=== PATIENT | male | born 1940 | race Caucasian/White ===

== ENCOUNTER 2021-08-29 19:30 | Inpatient (IN) | payer OTHER, SELFPAY ==
[~2021-08-29] VITALS: Ht 177.8 cm; Wt 80.9 kg
[~2021-08-29 19:30] MED LIST: APIX2.5T PO; APRE30TA2 PO; CEPH250C PO; CLOT45CR33 VG; FLUC200T51 PO; METO25TA3 PO; SIMV40TA2 PO; TAMS-11 PO
[2021-08-29 20:57] VITALS: BP_SYST 158
[2021-08-29] MEDS ORDERED: MORPHINE 4 MG INJ. 4 MG/ML VIAL IVP ONE ×2 (21:30→23:00)
[2021-08-29 22:41] LABS: BASOPHILS % (AUTO) 0.3 % (0.0-2.0); EOSINOPHILS % (AUTO) 0.3 % (0.0-4.0); HEMATOCRIT 46.1 % (36-54); HEMOGLOBIN 15.2 g/dL (14.0-18.0); LYMPHOCYTES # (AUTO) 0.4 K/uL (1.0-5.5); LYMPHOCYTES % (AUTO) 3.1 % (20.5-51.5); MEAN CORPUSCULAR HEMOGLOBIN 31 pg (27-31); MEAN CORPUSCULAR HGB CONC 33 % (32-36); MEAN CORPUSCULAR VOLUME 95 fL (79.0-98.0); MONOCYTES # (AUTO) 1.7 K/uL (0.0-1.0); MONOCYTES % (AUTO) 14.5 % (1.7-9.3); NEUTROPHILS # (AUTO) 9.4 K/uL (1.8-7.7); NEUTROPHILS % (AUTO) 81.8 % (40.0-70.0); PLATELET COUNT (AUTO) 147 K/uL (130-430); RED BLOOD CELL COUNT(AUTO) 4.88 MIL/uL (4.2-6.2); RED CELL DISTRIBUTION WIDTH 15.2 % (9.0-15.0); WHITE BLOOD COUNT (AUTO) 11.5 K/uL (4.8-10.8)
[2021-08-29 22:53] LABS: ANION GAP 10 (5-15); CALCIUM 9.3 mg/dL (8.4-11.0); CHLORIDE 101 mmol/L (98-107); CREATININE 0.84 mg/dL (0.55-1.30); GLUCOSE 124 mg/dL (70-99); POTASSIUM 4.3 mmol/L (3.5-5.1); SODIUM SERUM 136 mmol/L (136-145); UREA NITROGEN, BLOOD 29 mg/dL (8-21)
[2021-08-29 23:01] LABS: ALANINE AMINOTRANSFERASE 14 U/L (12-78); ALBUMIN 2.9 g/dL (3.4-4.8); ASPARTATE AMINOTRANSFERASE 23 U/L (10-37); LIPASE 42 U/L (73-393); TOTAL BILIRUBIN 0.8 mg/dL (0.0-1.0)
[2021-08-30 00:39] LABS: BILIRUBIN,URINE NEGATIVE (NEGATIVE); BLOOD, URINE NEGATIVE (NEGATIVE); CLARITY/URINE CLEAR (CLEAR); COLOR,URINE YELLOW (YELLOW); GLUCOSE,URINE NEGATIVE (NEGATIVE); KETONES,URINE 1+ (NEGATIVE); LEUKOCYTE ESTERASE ,URINE NEGATIVE (NEGATIVE); NITRITE, URINE NEGATIVE (NEGATIVE); PROTEIN URINE NEGATIVE (NEGATIVE); UROBILINOGEN,URINE 0.2 (0.2-1.0)
[2021-08-30 03:22] VITALS: BP_SYST 160
[2021-08-30] MEDS ORDERED: HYDROcodone/ACETAMIN 5-325 MG TAB (NORCO/ VICODIN) PO PRN (03:30)
[2021-08-30] MEDS: MORPHINE 2 MG/ML INJ. SYRINGE IVP PRN (03:49)
[2021-08-30] MEDS: D5/0.45 NS 1,000 ML IV SCH ×2 (03:54→04:25)
[2021-08-30 04:00] VITALS: BP_SYST 160
[2021-08-30] MEDS: HYDROcodone/ACETAMIN 10-325 MG TAB PO PRN ×4 (04:26→12:28)
[2021-08-30 07:32] VITALS: BP_SYST 167
[2021-08-30] MEDS ORDERED: FLUCONAZOLE 200 MG TABLET (DIFLUCAN) PO ONE (10:45)
[2021-08-30] MEDS ORDERED: CLOTRIMAZOLE 1% TOPICAL CREAM 15 GM TP ONE (10:45)
[2021-08-30] MEDS ORDERED: ONDANSETRON HCL 4 MG/2 ML VIAL IVP PRN (12:30)
[2021-08-30] MEDS ORDERED: TAMSULOSIN HCL 0.4 MG CAP PO ONE (12:45)
[2021-08-30] MEDS ORDERED: APIXABAN 2.5 MG TABLET PO ONE (12:45)
[2021-08-30] MEDS ORDERED: METOPROLOL SUCCINATE 25 MG TAB.SR.24H (TOPROL XL) PO ONE (12:45)
[2021-08-30] MEDS ORDERED: cephALEXin 250 MG CAPSULE PO SCH (13:00)
[2021-08-30] MEDS: NORMAL SALINE 5 ML DISP.SYRIN IVF SCH ×4 (14:00→21:06)
[2021-08-30] MEDS: cephALEXin 500 MG CAPSULE PO SCH ×3 (15:45→21:06)
[2021-08-30 20:00] VITALS: BP_SYST 135
[2021-08-30] MEDS: CLOTRIMAZOLE 1% TOPICAL CREAM 15 GM TP SCH (21:06)
[2021-08-30] MEDS: CLOTRIMAZOLE 2% 3 DAY VAGINAL 21 GM CREAM.APPL VG SCH (21:06)
[2021-08-30] MEDS: APIXABAN 2.5 MG TABLET PO SCH (21:06)
[2021-08-30] MEDS: SIMVASTATIN 40 MG TABLET PO SCH (21:06)
[2021-08-31] MEDS: MORPHINE 2 MG/ML INJ. SYRINGE IVP PRN ×2 (00:23→23:36)
[2021-08-31 01:10] VITALS: BP_SYST 153
[2021-08-31] MEDS: NORMAL SALINE 5 ML DISP.SYRIN IVF SCH ×3 (06:54→21:13)
[2021-08-31 07:48] LABS: BASOPHILS % (AUTO) 0.4 % (0.0-2.0); EOSINOPHILS # (AUTO) 0.1 K/uL (0.0-0.4); EOSINOPHILS % (AUTO) 0.5 % (0.0-4.0); HEMATOCRIT 42.7 % (36-54); HEMOGLOBIN 14.2 g/dL (14.0-18.0); LYMPHOCYTES # (AUTO) 0.6 K/uL (1.0-5.5); MEAN CORPUSCULAR HEMOGLOBIN 31 pg (27-31); MEAN CORPUSCULAR HGB CONC 33 % (32-36); MEAN CORPUSCULAR VOLUME 93 fL (79.0-98.0); MONOCYTES # (AUTO) 1.5 K/uL (0.0-1.0); MONOCYTES % (AUTO) 12.7 % (1.7-9.3); NEUTROPHILS # (AUTO) 9.5 K/uL (1.8-7.7); NEUTROPHILS % (AUTO) 81.4 % (40.0-70.0); PLATELET COUNT (AUTO) 168 K/uL (130-430); RED BLOOD CELL COUNT(AUTO) 4.58 MIL/uL (4.2-6.2); RED CELL DISTRIBUTION WIDTH 15.4 % (9.0-15.0); WHITE BLOOD COUNT (AUTO) 11.7 K/uL (4.8-10.8)
[2021-08-31 08:47] LABS: ALANINE AMINOTRANSFERASE 13 U/L (12-78); ALBUMIN 2.3 g/dL (3.4-4.8); ANION GAP 9 (5-15); ASPARTATE AMINOTRANSFERASE 18 U/L (10-37); CALCIUM 7.8 mg/dL (8.4-11.0); CHLORIDE 103 mmol/L (98-107); CREATININE 0.61 mg/dL (0.55-1.30); GLUCOSE 99 mg/dL (70-99); POTASSIUM 3.8 mmol/L (3.5-5.1); SODIUM SERUM 137 mmol/L (136-145); TOTAL BILIRUBIN 0.6 mg/dL (0.0-1.0); UREA NITROGEN, BLOOD 21 mg/dL (8-21)
[2021-08-31] MEDS: HYDROcodone/ACETAMIN 10-325 MG TAB PO PRN ×3 (08:49→17:18)
[2021-08-31] MEDS: cephALEXin 500 MG CAPSULE PO SCH (08:50)
[2021-08-31] MEDS: APIXABAN 2.5 MG TABLET PO SCH ×2 (08:50→21:12)
[2021-08-31] MEDS: TAMSULOSIN HCL 0.4 MG CAP PO SCH (08:51)
[2021-08-31] MEDS: METOPROLOL SUCCINATE 25 MG TAB.SR.24H (TOPROL XL) PO SCH (08:51)
[2021-08-31] MEDS: CLOTRIMAZOLE 1% TOPICAL CREAM 15 GM TP SCH ×2 (08:53→21:12)
[2021-08-31] MEDS ORDERED: NON-FORMULARY MEDICATION (Apremilast (Otezla) 30 MG) PO SCH (09:00)
[2021-08-31] MEDS ORDERED: FLUCONAZOLE 200 MG TABLET (DIFLUCAN) PO SCH ×2 (09:00)
[2021-08-31] MEDS: CLOTRIMAZOLE 2% 3 DAY VAGINAL 21 GM CREAM.APPL VG SCH ×2 (09:00→21:13)
[2021-08-31 09:24] LABS: ERYTHROCYTE SEDIMENTATION RATE 43 MM/HR (0-15)
[2021-08-31 10:00] LABS: C-REACTIVE PROTEIN QUANT 14.8 mg/dL (0-0.5)
[2021-08-31 13:06] VITALS: BP_SYST 143
[2021-08-31] MEDS: MICAFUNGIN SODIUM 100 MG in NS 100 ML IV SCH (13:15)
[2021-08-31 18:04] VITALS: BP_SYST 151
[2021-08-31 20:00] VITALS: BP_SYST 145
[2021-08-31] MEDS: CEFEPIME 1 GM in D5W 50 ML IV SCH (21:12)
[2021-08-31] MEDS: SIMVASTATIN 40 MG TABLET PO SCH (21:12)
[2021-09-01 01:13] VITALS: BP_SYST 158
[2021-09-01] MEDS: NORMAL SALINE 5 ML DISP.SYRIN IVF SCH ×3 (06:04→21:42)
[2021-09-01 08:00] VITALS: BP_SYST 121
[2021-09-01] MEDS: APIXABAN 2.5 MG TABLET PO SCH ×2 (09:29→21:33)
[2021-09-01] MEDS: TAMSULOSIN HCL 0.4 MG CAP PO SCH (09:30)
[2021-09-01] MEDS: CLOTRIMAZOLE 2% 3 DAY VAGINAL 21 GM CREAM.APPL VG SCH ×2 (09:31→21:00)
[2021-09-01] MEDS: METOPROLOL SUCCINATE 25 MG TAB.SR.24H (TOPROL XL) PO SCH (09:31)
[2021-09-01] MEDS: CLOTRIMAZOLE 1% TOPICAL CREAM 15 GM TP SCH ×2 (09:31→21:41)
[2021-09-01] MEDS: CEFEPIME 1 GM in D5W 50 ML IV SCH ×2 (09:32→21:40)
[2021-09-01 12:26] VITALS: BP_SYST 138
[2021-09-01] MEDS: MICAFUNGIN SODIUM 100 MG in NS 100 ML IV SCH (12:44)
[2021-09-01 16:40] VITALS: BP_SYST 132
[2021-09-01] MEDS: HYDROcodone/ACETAMIN 10-325 MG TAB PO PRN (16:41)
[2021-09-01] MEDS: SIMVASTATIN 40 MG TABLET PO SCH (21:35)
[2021-09-01 23:40] VITALS: BP_SYST 157
[2021-09-02 04:29] VITALS: BP_SYST 157
[2021-09-02] MEDS: HYDROcodone/ACETAMIN 10-325 MG TAB PO PRN ×2 (05:13→11:48)
[2021-09-02] MEDS: NORMAL SALINE 5 ML DISP.SYRIN IVF SCH ×3 (05:14→22:09)
[2021-09-02 08:26] VITALS: BP_SYST 148
[2021-09-02] MEDS: CLOTRIMAZOLE 1% TOPICAL CREAM 15 GM TP SCH ×2 (10:00→22:10)
[2021-09-02] MEDS: CEFEPIME 1 GM in D5W 50 ML IV SCH ×2 (10:11→22:07)
[2021-09-02] MEDS: TAMSULOSIN HCL 0.4 MG CAP PO SCH (10:12)
[2021-09-02] MEDS: METOPROLOL SUCCINATE 25 MG TAB.SR.24H (TOPROL XL) PO SCH (10:13)
[2021-09-02] MEDS: APIXABAN 2.5 MG TABLET PO SCH ×2 (10:15→20:35)
[2021-09-02] MEDS: CLOTRIMAZOLE 2% 3 DAY VAGINAL 21 GM CREAM.APPL VG SCH ×2 (10:30→22:10)
[2021-09-02 12:00] VITALS: BP_SYST 138; BP_SYST 148
[2021-09-02] MEDS: MICAFUNGIN SODIUM 100 MG in NS 100 ML IV SCH (12:30)
[2021-09-02 16:30] VITALS: BP_SYST 132
[2021-09-02 20:00] VITALS: BP_SYST 165
[2021-09-02] MEDS ORDERED: hydrALAZINE HCL 25 MG TABLET PO ONE (21:30)
[2021-09-02] MEDS ORDERED: hydrALAZINE HCL 25 MG TABLET ONE (22:00)
[2021-09-02] MEDS: SIMVASTATIN 40 MG TABLET PO SCH (22:07)
[2021-09-03] VITALS: BP_SYST 164
[2021-09-03 02:19] VITALS: BP_SYST 163
[2021-09-03] MEDS: NORMAL SALINE 5 ML DISP.SYRIN IVF SCH ×3 (05:59→20:43)
[2021-09-03 08:03] VITALS: BP_SYST 161
[2021-09-03] MEDS: TAMSULOSIN HCL 0.4 MG CAP PO SCH (09:34)
[2021-09-03] MEDS: CEFEPIME 1 GM in D5W 50 ML IV SCH ×2 (09:34→20:39)
[2021-09-03] MEDS: CLOTRIMAZOLE 1% TOPICAL CREAM 15 GM TP SCH ×2 (09:35→20:40)
[2021-09-03] MEDS: METOPROLOL SUCCINATE 25 MG TAB.SR.24H (TOPROL XL) PO SCH (09:35)
[2021-09-03] MEDS: APIXABAN 2.5 MG TABLET PO SCH ×2 (09:36→20:42)
[2021-09-03] MEDS: MICAFUNGIN SODIUM 100 MG in NS 100 ML IV SCH (12:30)
[2021-09-03 12:52] VITALS: BP_SYST 138
[2021-09-03 18:08] VITALS: BP_SYST 130
[2021-09-03 20:00] VITALS: BP_SYST 133
[2021-09-03] MEDS: SIMVASTATIN 40 MG TABLET PO SCH (20:41)
[2021-09-04] VITALS: BP_SYST 130
[2021-09-04 00:15] VITALS: BP_SYST 157
[2021-09-04] MEDS: NORMAL SALINE 5 ML DISP.SYRIN IVF SCH ×2 (05:53→13:46)
[2021-09-04 09:08] VITALS: BP_SYST 149
[2021-09-04] MEDS: APIXABAN 2.5 MG TABLET PO SCH (09:30)
[2021-09-04] MEDS: HYDROcodone/ACETAMIN 10-325 MG TAB PO PRN (09:30)
[2021-09-04] MEDS: CEFEPIME 1 GM in D5W 50 ML IV SCH (09:32)
[2021-09-04] MEDS: CLOTRIMAZOLE 1% TOPICAL CREAM 15 GM TP SCH (09:55)
[2021-09-04] MEDS: TAMSULOSIN HCL 0.4 MG CAP PO SCH (11:04)
[2021-09-04] MEDS: METOPROLOL SUCCINATE 25 MG TAB.SR.24H (TOPROL XL) PO SCH (11:06)
[2021-09-04] MEDS: MICAFUNGIN SODIUM 100 MG in NS 100 ML IV SCH (12:26)
[2021-09-04 12:31] VITALS: BP_SYST 138
[2021-09-04 14:36] VITALS: BP_SYST 141
== END 2021-09-04 16:25 | DRG 727 ==
LOC: SED 19:30 → SMU 08-30 01:46
PROVIDERS: ADMIT Internal Medicine Hospice and Palliative Medicine; ATTEND Internal Medicine Hospice and Palliative Medicine
DX: N49.2 Inflammatory disorders of scrotum (principal); E43 Unspecified severe protein-calorie malnutrition; N39.0 Urinary tract infection, site not specified; R33.9 Retention of urine, unspecified; B36.9 Superficial mycosis, unspecified; N43.3 Hydrocele, unspecified; Z20.822 Contact with and (suspected) exposure to COVID-19; I25.10 Atherosclerotic heart disease of native coronary artery without angina pectoris; I10 Essential (primary) hypertension; Z86.711 Personal history of pulmonary embolism; Z79.899 Other long term (current) drug therapy; Z79.2 Long term (current) use of antibiotics
CPT/HCPCS: 36415; 72192-TC; 76376; 80053; 81003; 82962; 83690; 84484; 85025; 85651-TC; 86140; 87070-TC; 87075-TC; 87081; 87101; 87186-TC; 93005; 96374; 99291; J0692; J2248; J2270; J7060